=== PATIENT | male | born 1995 | race African-American/Black ===

== ENCOUNTER 2017-05-23 22:18 | Observation (INO) | payer SELFPAY, OTHER ==
[2017-05-23 22:34] LABS: POC GLUCOSE 61 mg/dL (70-99)
[2017-05-23 23:04] LABS: ADD MAN DIFF? NO
[2017-05-23 23:07] LABS: BASO % 0 % (0-3); EOS % 0 % (0-3); HEMATOCRIT 50.5 % (39.0-53.0); HEMOGLOBIN 16.3 g/dL (13.0-17.5); LYMPH # 1.7 x10^3/uL (1.0-4.8); LYMPH % 13 % (24-48); MEAN CORPUSCULAR HEMOGLOBIN 27 pg (25-35); MEAN CORPUSCULAR HGB CONC 32 g/dL (31-37); MEAN CORPUSCULAR VOLUME 82 fL (79-100); MONO # 0.9 x10^3/uL (0.0-1.1); MONO % 7 % (0-9); NEUT # 10.3 x10^3uL (1.8-7.7); NEUT % 79 % (31-73); PLATELET COUNT 252 x10^3/uL (140-400); RED BLOOD COUNT 6.15 x10^6/uL (4.30-5.70); RED CELL DISTRIBUTION WIDTH 14.1 % (11.5-14.5)
[2017-05-23 23:14] LABS: ANION GAP 12 (6-14); BLOOD UREA NITROGEN 17 mg/dL (8-26); CALCIUM 8.8 mg/dL (8.5-10.1); CARBON DIOXIDE 26 mmol/L (21-32); CHLORIDE 99 mmol/L (98-107); GFR 116.5; GLUCOSE 119 mg/dL (70-99); POTASSIUM 3.9 mmol/L (3.5-5.1); SODIUM 137 mmol/L (136-145)
[2017-05-23 23:20] LABS: ALBUMIN 3.9 g/dL (3.4-5.0); ALK PHOS 87 U/L (46-116); ALT (SGPT) 36 U/L (16-63); AST (SGOT) 32 U/L (15-37); DIRECT BILIRUBIN < 0.1 mg/dL (0.0-0.2); TOTAL BILIRUBIN 0.3 mg/dL (0.2-1.0); TOTAL PROTEIN 7.8 g/dL (6.4-8.2)
[2017-05-23] MEDS: IV NORMAL SALINE 1000ML BAG 1,000 ML IV (23:52)
[2017-05-24 00:11] LABS: POC GLUCOSE 125 mg/dL (70-99)
[2017-05-24] MEDS ORDERED: ONDANSETRON PF 4 MG/2 ML VIAL. IV (00:15)
[2017-05-24] MEDS ORDERED: MORPHINE SULFATE 4 MG/ML DISP.SYRIN. IV (00:15)
[2017-05-24] MEDS: ONDANSETRON PF 4 MG/2 ML VIAL. IV (01:03)
[2017-05-24] MEDS: diphenhydrAMINE 50 MG/ML VIAL IVP (01:04)
[2017-05-24] MEDS: BENZONATATE 100 MG CAPSULE. PO (01:43)
[2017-05-24] MEDS: IV NORMAL SALINE 1000ML BAG 1,000 ML IV ×2 (01:43→02:17)
[2017-05-24] MEDS: AMOXICILLIN/K CLAV 875/125MG TABLET. PO (01:43)
== END 2017-05-24 10:17 | disposition home or self-care (01) ==
LOC: 6 SOUTH 05-24 00:08 → ER 22:18
PROVIDERS: Internal Medicine
DX: R55 Syncope and collapse (principal); E86.0 Dehydration; E66.9 Obesity, unspecified; H66.90 Otitis media, unspecified, unspecified ear; B34.9 Viral infection, unspecified; Z68.30 Body mass index [BMI] 30.0-30.9, adult
CPT/HCPCS: 36415; 70450; 71045; 80048; 80076; 82962; 85025; 93005; 96361; 96374; 96375; 99285-25; G0378; G0379; J1200; J2405; J7030